=== PATIENT | male | born 1975 | race Caucasian/White ===

== ENCOUNTER 2024-05-26 14:43 | Emergency (ER) | payer BC ==
[~2024-05-26] VITALS: Ht 180.3 cm; Wt 95.3 kg
[2024-05-26 14:44] VITALS: BP 130/88; PULSE 74; RESP 18; TEMP 97.6; O2SAT 98
--- NOTE | 2024-05-26 14:44 | NUR ---
ARRIVAL PATIENT ARRIVED TO ED5 AMBULATORY, C/O RIGHT INDEX FINGER LACERATION TODAY, PATIENT STATES HE WAS USING A VEGGIE SLICER AND SLICED THE TIP OF THE RIGHT INDEX FINGER. CAME TO THE ED FOR EVAL, VITAL SIGNS TAKEN AND DOCTOR NOTIFIED OF PATIENT'S ARRIVAL.
[2024-05-26 15:31] VITALS: BP 137/84; PULSE 74; RESP 18; TEMP 97.6; O2SAT 98
== END 2024-05-26 15:34 | disposition home or self-care (01) ==
LOC: ER 14:43
DX: S61.210A Laceration without foreign body of right index finger without damage to nail, initial encounter (principal); X58.XXXA Exposure to other specified factors, initial encounter; Y93.89 Activity, other specified; Y92.89 Other specified places as the place of occurrence of the external cause; Y99.8 Other external cause status
CPT/HCPCS: 99281